=== PATIENT | female | born 1960 | race Caucasian/White ===

== ENCOUNTER 2020-03-20 13:24 | Emergency (ER) | payer MEDICAID ==
[~2020-03-20] VITALS: Ht 160 cm; Wt 75.0 kg
[2020-03-20] MEDS ORDERED: IBUPROFEN 600MG TABLET PO ONE (15:00)
[2020-03-20 16:07] VITALS: BP 109/40
== END 2020-03-20 16:08 | disposition home or self-care (01) ==
LOC: ER 13:24
DX: M79.671 Pain in right foot (principal); E11.9 Type 2 diabetes mellitus without complications; I10 Essential (primary) hypertension
CPT/HCPCS: 99282; 99283